=== PATIENT | female | born 1990 | race Two or more races ===

== ENCOUNTER 2021-12-19 19:22 | Emergency (ER) | payer SELFPAY ==
[~2021-12-19] VITALS: Ht 175.3 cm; Wt 80.0 kg
[2021-12-19 19:45] VITALS: BP 128/72
[2021-12-19] MEDS ORDERED: AMOXICILLIN/POTASSIUM CLAVULANATE 875/125MG TAB PO ONE (19:45)
[2021-12-19] MEDS ORDERED: TETANUS, DIPHTHERIA, PERTUSSIS VAC/PF 0.5ML (>10YR OLD) IM ONE (19:45)
[2021-12-19] MEDS ORDERED: BACITRACIN ZINC OINT UDPKT TOP ONE (20:00)
[2021-12-19] MEDS ORDERED: AMOX1TAB16 MT (20:13)
[2021-12-19] MEDS ORDERED: IBUP-2029 MT (20:13)
== END 2021-12-19 20:55 | disposition home or self-care (01) ==
LOC: ER 19:22
DX: S41.151A Open bite of right upper arm, initial encounter (principal); W50.3XXA Accidental bite by another person, initial encounter; Y93.89 Activity, other specified; Y92.89 Other specified places as the place of occurrence of the external cause; Y99.8 Other external cause status
CPT/HCPCS: 90471; 90715; 99283

== ENCOUNTER 2022-03-04 11:50 | Emergency (ER) | payer OTHER ==
[~2022-03-04] VITALS: Ht 170.2 cm; Wt 77.0 kg
[~2022-03-04 11:50] MED LIST: AMOX1TAB16 MT; IBUP-2029 MT
[2022-03-04 11:51] VITALS: BP 111/89
[2022-03-04] MEDS ORDERED: FLUORESCEIN SODIUM 1MG/STRIP LEFTEYE ONE (12:15)
[2022-03-04] MEDS ORDERED: TETRACAINE 0.5% OPHTH DROPS 4ML LEFTEYE ONE (12:15)
[2022-03-04] MEDS ORDERED: BALANCED SALT IRRIG SOLN 15ML IR ONE (12:15)
[2022-03-04] MEDS ORDERED: IBUP-2029 MT (12:58)
[2022-03-04] MEDS ORDERED: OFLO5DRO3 LEFTEYE (12:58)
== END 2022-03-04 13:20 | disposition home or self-care (01) ==
LOC: ER 13:19
DX: S05.02XA Injury of conjunctiva and corneal abrasion without foreign body, left eye, initial encounter (principal); X58.XXXA Exposure to other specified factors, initial encounter; Y93.89 Activity, other specified; Y92.89 Other specified places as the place of occurrence of the external cause; Y99.8 Other external cause status; Z98.890 Other specified postprocedural states
CPT/HCPCS: 81025; 99283

== ENCOUNTER 2022-05-18 09:01 | Emergency (ER) | payer MEDICAID, OTHER ==
[~2022-05-18] VITALS: Ht 167.6 cm; Wt 68.0 kg
[~2022-05-18 09:01] MED LIST changes: +OFLO5DRO3 LEFTEYE
[2022-05-18 09:10] VITALS: BP 126/82
[2022-05-18] MEDS ORDERED: TETRACAINE 0.5% OPHTH DROPS 4ML LEFTEYE ONE (09:30)
[2022-05-18] MEDS ORDERED: FLUORESCEIN SODIUM 1MG/STRIP LEFTEYE ONE (09:30)
[2022-05-18] MEDS ORDERED: LEVO5DRO20 LEFTEYE ×2 (10:01)
[2022-05-18] MEDS ORDERED: OFLO5DRO3 LEFTEYE (12:36)
== END 2022-05-18 11:40 | disposition home or self-care (01) ==
LOC: ER 09:01
DX: H57.12 Ocular pain, left eye (principal)
CPT/HCPCS: 99283

== ENCOUNTER 2022-06-14 07:28 | Emergency (ER) | payer OTHER ==
[~2022-06-14] VITALS: Ht 170.2 cm; Wt 68.0 kg
[2022-06-14 07:30] VITALS: BP 118/82
[2022-06-14] MEDS ORDERED: TETRACAINE 0.5% OPHTH DROPS 4ML BOTHEYE ONE (08:15)
[2022-06-14] MEDS ORDERED: FLUORESCEIN SODIUM 1MG/STRIP BOTHEYE ONE (08:15)
[2022-06-14] MEDS ORDERED: OFLO5DRO3 EACHEYE (08:36)
[2022-06-14] MEDS ORDERED: PRED5DRO22 LEFTEYE (08:44)
[2022-06-14] MEDS ORDERED: ACETAMINOPHEN 325MG TABLET PO ONE (08:45)
[2022-06-14] MEDS ORDERED: PREDNISOLONE ACETATE 1% OPHTH DROPS 5ML BOTHEYE SCH (12:00)
== END 2022-06-14 09:10 | disposition home or self-care (01) ==
LOC: ER 07:28
DX: H18.822 Corneal disorder due to contact lens, left eye (principal)
CPT/HCPCS: 99284